=== PATIENT | male | born 1930 | race Caucasian/White ===

== ENCOUNTER 2018-12-02 09:58 | Emergency (ER) | payer MEDICARE ==
[2018-12-02 10:30] VITALS: BP 151/76
--- NOTE | 2018-12-02 10:46 | UC ---
Respiratory Complaint HPI - HPI Summary HPI Summary: Pt presents with c/o nasal congestion, malaise, cough, sob, night sweats, chills X 2 weeks. - History of Current Complaint Stated Complaint: COUGH,COLD SWEATS Time Seen by Provider: 12/02/18 10:09 Hx Obtained From: Patient, Family/Oven Press Tender Onset/Duration: Gradual Onset, Lasting Weeks Timing: Constant Severity Initially: Mild Severity Currently: Moderate Pain Intensity: 4 Character: Cough: Productive Aggravating Factors: Deep Breaths, Recumbent Position Alleviating Factors: Nothing Associated Signs And Symptoms: Positive: Chills, URI, Nasal Congestion - Risk Factors Pulmonary Embolism Risk Factors: Negative Cardiac Risk Factors: Negative Pseudomonas Risk Factors: Negative Tuberculosis Risk Factors: Negative - Allergies/Home Medications Allergies/Adverse Reactions: Allergies Allergy/AdvReac Type Severity Reaction Status Date / Time No Known Allergies Allergy Verified 12/02/18 10:27 Home Medications: Home Medications Acetaminophen [Acetaminophen ER] 650 mg PO Q8H PRN 12/02/18 [History Confirmed 12/02/18] PMH/Surg Hx/FS Hx/Imm Hx Previously Healthy: Yes - extremes of - Surgical History Surgical History: Yes Surgery Procedure, Year, and Place: Bilateral Cataract Extraction, 2017, [place]; Sinus Surgery - Family History Known Family History: Positive: Cardiac Disease - Social History Occupation: Retired Lives: With Family Alcohol Use: None Substance Use Type: None Smoking Status (MU): Former Smoker Length of Time of Smoking/Using Tobacco: <1 PPD x 17 Years When Did the Patient Quit Smoking/Using Tobacco: ~1966 - Immunization History Vaccination Up to Date: No Review of Systems All Other Systems Reviewed And Are Negative: Yes Constitutional: Positive: Fever, Chills, Fatigue Skin: Positive: Negative Eyes: Positive: Negative ENT: Positive: Sinus Congestion Respiratory: Positive: Shortness Of Breath, Cough Cardiovascular: Positive: Negative Gastrointestinal: Positive: Negative Genitourinary: Positive: Negative Motor: Positive: Negative Neurovascular: Positive: Negative Musculoskeletal: Positive: Negative Neurological: Positive: Negative Psychological: Positive: Negative Is Patient Immunocompromised?: No Physical Exam Triage Information Reviewed: Yes Appearance: Ill-Appearing Vital Signs: Initial Vital Signs Temp 99 F 12/02/18 10:24 Pulse 93 12/02/18 10:24 Resp 24 12/02/18 10:24 BP 151/76 12/02/18 10:24 Pulse Ox 97 12/02/18 10:24 Vital Signs Reviewed: Yes Eye Exam: Normal ENT: Positive: Nasal congestion Dental Exam: Normal Neck exam: Normal Respiratory: Positive: Decreased breath sounds - left lower lobe Cardiovascular Exam: Normal Musculoskeletal Exam: Normal Neurological Exam: Normal Psychological Exam: Normal Skin Exam: Normal Respiratory Course/Dx - Differential Dx/Diagnosis Differential Diagnosis/HQI/PQRI: Bronchitis Provider Diagnosis: Pneumonia Discharge - Sign-Out/Discharge Documenting (check all that apply): Patient Departure All imaging exams completed and their final reports reviewed: No Studies - Discharge Plan Condition: Stable Disposition: HOME Prescriptions: Amoxicillin/Clavulanate TAB* [Augmentin TAB*] 875 mg PO Q12H #20 tab Benzonatate CAP* [Tessalon 100 MG CAP*] 200 mg PO Q8H PRN #30 cap PRN Reason: Cough predniSONE TAB* [Deltasone 10 MG TAB*] 30 mg PO DAILY #12 tab Patient Education Materials: Pneumonia (ED) Referrals: Adelina Johnston MD [Primary Care Provider] - As Soon As Possible Additional Instructions: Please follow up with your PCP as soon as possible. If your symptoms do not improve or they worsen then please go directly to the closest emergency room. - Billing Disposition and Condition Condition: STABLE Disposition: Home
== END 2018-12-02 11:03 | disposition home or self-care (01) ==
LOC: UCCORT 09:58
DX: J18.9 Pneumonia, unspecified organism (principal); Z87.891 Personal history of nicotine dependence
CPT/HCPCS: 99202; G0463

== ENCOUNTER 2018-12-19 09:41 | Emergency (ER) | payer MEDICARE ==
[2018-12-19 11:30] VITALS: BP 135/85
--- NOTE | 2018-12-19 12:09 | UC ---
Respiratory Complaint HPI - HPI Summary HPI Summary: 88 yo male with productive cough x weeks recently finished a round of augmentin and prednisone was told he had pneumonia no CP or SOB no n/v/d some sinus pressure ? wt loss - History of Current Complaint Chief Complaint: UCRespiratory Stated Complaint: COUGH Time Seen by Provider: 12/19/18 11:40 Hx Obtained From: Patient Onset/Duration: Gradual Onset Timing: Constant Severity Initially: Mild Severity Currently: Mild Pain Intensity: 0 Pain Scale Used: 0-10 Numeric Character: Cough: Productive Aggravating Factors: Nothing Associated Signs And Symptoms: Positive: Edema, Nasal Congestion, Sinus Discomfort. Negative: Fever, Chills, Pleuritic Chest Pain, Wheezing, Hemoptysis , Dizziness, Calf Pain - Allergies/Home Medications Allergies/Adverse Reactions: Allergies Allergy/AdvReac Type Severity Reaction Status Date / Time No Known Allergies Allergy Verified 12/19/18 11:31 PMH/Surg Hx/FS Hx/Imm Hx Previously Healthy: Yes Neurological History: CVA - Surgical History Surgical History: Yes Surgery Procedure, Year, and Place: Bilateral Cataract Extraction, [facility], [place]; Sinus Surgery - Family History Known Family History: Positive: Cardiac Disease, Hypertension - Social History Alcohol Use: None Substance Use Type: None Smoking Status (MU): Former Smoker Length of Time of Smoking/Using Tobacco: <1 PPD x 17 Years When Did the Patient Quit Smoking/Using Tobacco: ~1966 - Immunization History Vaccination Up to Date: No Review of Systems All Other Systems Reviewed And Are Negative: Yes Constitutional: Positive: Fatigue Skin: Positive: Negative Eyes: Positive: Negative ENT: Positive: Negative Respiratory: Positive: Cough Cardiovascular: Positive: Negative Gastrointestinal: Positive: Negative Genitourinary: Positive: Negative Motor: Positive: Negative Neurovascular: Positive: Negative Musculoskeletal: Positive: Negative Neurological: Positive: Negative Psychological: Positive: Negative Physical Exam Triage Information Reviewed: Yes Appearance: Well-Appearing, No Pain Distress, Well-Nourished Vital Signs: Initial Vital Signs Temp 98.6 F 12/19/18 11:24 Pulse 94 12/19/18 11:24 Resp 16 12/19/18 11:24 BP 135/85 12/19/18 11:24 Pulse Ox 98 12/19/18 11:24 Vital Signs Reviewed: Yes Eyes: Positive: Conjunctiva Clear ENT: Negative: Hearing grossly normal - [place] Dental: Positive: Other: - dentures Neck: Positive: Supple, Nontender, No Lymphadenopathy Respiratory: Positive: Normal breath sounds, No respiratory distress, Decreased breath sounds - left base, Crackles - left side Cardiovascular: Positive: RRR Musculoskeletal: Positive: Edema @ - pretibial edema Neurological: Positive: Alert Psychological Exam: Normal Skin Exam: Normal Diagnostics - Radiology No standard instances Radiology Interpretation Completed By: Radiologist Summary of Radiographic Findings: Similar to the prior chest x-ray there is overall increased interstitial lung markings. The pulmonary vasculature is mostly well-defined and does not appear particularly. engorged. There is no definite focal infiltrate or lobar consolidation. Respiratory Course/Dx - Differential Dx/Diagnosis Provider Diagnosis: History of persistent cough Discharge - Sign-Out/Discharge Documenting (check all that apply): Patient Departure All imaging exams completed and their final reports reviewed: Yes - Discharge Plan Condition: Stable Disposition: HOME Prescriptions: Benzonatate CAP* [Tessalon CAP*] 100 - 200 mg PO TID PRN #28 cap PRN Reason: Cough Patient Education Materials: Acute Cough (ED) Referrals: Adelina Johnston MD [Primary Care Provider] - 1 Week - Billing Disposition and Condition Condition: STABLE Disposition: Home
== END 2018-12-19 12:45 | disposition home or self-care (01) ==
LOC: UCCORT 09:41
DX: R05 Cough (principal); Z87.09 Personal history of other diseases of the respiratory system; Z86.73 Personal history of transient ischemic attack (TIA), and cerebral infarction without residual deficits; Z87.891 Personal history of nicotine dependence
CPT/HCPCS: 71046; 99201; G0463

== ENCOUNTER 2019-04-05 08:01 | Emergency (ER) | payer MEDICARE ==
--- NOTE | 2019-04-05 08:13 | UC ---
Skin Complaint HPI - HPI Summary HPI Summary: cat bite left hand x 2 hrs ago + pain and swelling minimal bleeding cat was provoked , they have been trying to catch and take the cat to the vet. no fever, no chills - History of Current Complaint Time Seen by Provider: 04/05/19 08:09 Stated Complaint: LEFT HAND CAT BITE Hx Obtained From: Patient Onset/Duration: Sudden Onset Timing: Constant Onset Severity: Moderate Current Severity: Moderate Location: Diffuse - left hand Character: Pain, Redness, Raised, Painful Aggravating Factor(s): Touch Alleviating Factor(s): Nothing Associated Signs & Symptoms: Positive: Negative. Negative: Fever, Chills, Cough , Red Streaks Related History: Other: - cat bite - Allergy/Home Medications Allergies/Adverse Reactions: Allergies Allergy/AdvReac Type Severity Reaction Status Date / Time No Known Allergies Allergy Verified 04/05/19 08:15 PMH/Surg Hx/FS Hx/Imm Hx Neurological History: CVA - Surgical History Surgical History: Yes Surgery Procedure, Year, and Place: Bilateral Cataract Extraction, [facility] [place]; Sinus Surgery - Family History Known Family History: Positive: Cardiac Disease, Hypertension - Social History Alcohol Use: None Substance Use Type: None Smoking Status (MU): Former Smoker Length of Time of Smoking/Using Tobacco: <1 PPD x 17 Years When Did the Patient Quit Smoking/Using Tobacco: ~1966 - Immunization History Vaccination Up to Date: No Review of Systems All Other Systems Reviewed And Are Negative: Yes Constitutional: Positive: Negative Is Patient Immunocompromised?: No Physical Exam Triage Information Reviewed: Yes Appearance: Well-Appearing, No Pain Distress, Well-Nourished Vital Signs Reviewed: Yes Eye Exam: Normal Eyes: Positive: Conjunctiva Clear ENT: Positive: Normal ENT inspection, Hearing grossly normal Neck: Positive: Supple, Nontender, No Lymphadenopathy Respiratory: Positive: Chest non-tender, Lungs clear, Normal breath sounds Cardiovascular: Positive: RRR, No Murmur, Pulses Normal Skin: Positive: Other - puncture wound of left hand due to cat bite , mild swelling, no bleeding, no erythema, no discharge Course/Dx - Diagnoses Provider Diagnosis: Puncture wound of left hand, Cat bite of left hand Discharge ED - Sign-Out/Discharge Documenting (check all that apply): Patient Departure All imaging exams completed and their final reports reviewed: No Studies - Discharge Plan Condition: Stable Disposition: HOME Prescriptions: Amoxicillin/Clavulanate TAB* [Augmentin TAB 875*] 875 mg PO BID #20 tab Patient Education Materials: Animal Bite (ED) Referrals: Adelina Johnston MD [Primary Care Provider] - 5 Days - Billing Disposition and Condition Condition: STABLE Disposition: Home
[2019-04-05] MEDS ORDERED: Tetan/Diph/Pertus SYR(Tdap)* 0.5 ML SYR(BOOSTRIX) use SYR IM ONE (08:14)
[2019-04-05 08:27] VITALS: BP 154/75
== END 2019-04-05 08:46 | disposition home or self-care (01) ==
LOC: UCCORT 08:01
DX: S61.452A Open bite of left hand, initial encounter (principal); W55.01XA Bitten by cat, initial encounter; Y93.89 Activity, other specified; Y92.9 Unspecified place or not applicable; Z86.73 Personal history of transient ischemic attack (TIA), and cerebral infarction without residual deficits; Z87.891 Personal history of nicotine dependence
CPT/HCPCS: 90471; 90715; 99212; G0463

== ENCOUNTER 2019-07-23 14:01 | Emergency (ER) | payer MEDICARE ==
[2019-07-23 14:39] VITALS: BP 140/72
--- NOTE | 2019-07-23 14:56 | UC ---
Respiratory Complaint HPI - HPI Summary HPI Summary: 88-year-old male presents with one-week history of nasal congestion, bilateral ear pain, sore throat, and a productive cough. States cough tends to be worse at night. Complains of right lower chest pain especially with inspiration. No measured fever. Patient reports he is prone to developing pneumonia. Denies palpitations, edema, diaphoresis, shortness of breath, abdominal pain, nausea, or vomiting. - History of Current Complaint Chief Complaint: UCGeneralIllness Stated Complaint: CONGESTION COUGH Time Seen by Provider: 07/23/19 14:42 Hx Obtained From: Patient Pain Intensity: 0 - Allergies/Home Medications Allergies/Adverse Reactions: Allergies Allergy/AdvReac Type Severity Reaction Status Date / Time No Known Allergies Allergy Verified 07/23/19 14:39 PMH/Surg Hx/FS Hx/Imm Hx Previously Healthy: Yes - Denies significant PMH - Surgical History Surgical History: Yes Surgery Procedure, Year, and Place: Bilateral Cataract Extraction, [facility], [place]; Sinus Surgery - Family History Known Family History: Positive: Cardiac Disease, Hypertension - Social History Occupation: Retired Lives: With Family Alcohol Use: None Substance Use Type: None Smoking Status (MU): Former Smoker Length of Time of Smoking/Using Tobacco: <1 PPD x 17 Years When Did the Patient Quit Smoking/Using Tobacco: ~1966 - Immunization History Vaccination Up to Date: No Review of Systems All Other Systems Reviewed And Are Negative: Yes Constitutional: Negative: Fever, Chills, Fatigue Skin: Negative: Rash Eyes: Negative: Drainage, Eye Redness ENT: Positive: Sore Throat, Ear Ache, Nasal Discharge, Sinus Congestion. Negative: Sinus Pain/Tenderness Respiratory: Positive: Cough. Negative: Shortness Of Breath Cardiovascular: Positive: Chest Pain. Negative: Palpitations Gastrointestinal: Negative: Abdominal Pain, Vomiting, Nausea Genitourinary: Positive: Negative Musculoskeletal: Positive: Negative Neurological: Positive: Negative Is Patient Immunocompromised?: No Physical Exam - Summary Physical Exam Summary: GENERAL APPEARANCE: Alert and cooperative older adult male who appears to be in no acute distress. EYES: Conjunctiva clear. No drainage. EARS: External auditory canals and tympanic membranes clear, hearing grossly intact. NOSE: Mild nasal congestion. No nasal discharge. THROAT: Pharyngeal cobblestoning. No tonsilar inflammation, swelling, exudate, or lesions. Uvula midline. NECK: Neck supple, non-tender without lymphadenopathy. CARDIAC: Normal S1 and S2. No S3, S4 or murmurs. Rhythm is regular. There is no peripheral edema, cyanosis or pallor. Extremities are warm and well perfused. Capillary refill is less than 2 seconds. Peripheral pulses intact. LUNGS: Fine crackles noted to the right base. No diminished breath sounds or wheezing. ABDOMEN: Positive bowel sounds. Soft, nondistended, nontender. No guarding or rebound. No masses or hepatosplenomegally. MUSKULOSKELETAL: ROM intact to all extremities. No joint erythema or tenderness. Normal muscular development. Normal gait. SKIN: Skin normal color, texture and turgor with no lesions or eruptions. Triage Information Reviewed: Yes Vital Signs: Initial Vital Signs Temp 98.3 F 07/23/19 14:32 Pulse 93 07/23/19 14:32 Resp 18 07/23/19 14:32 BP 140/72 07/23/19 14:32 Pulse Ox 98 07/23/19 14:32 Vital Signs Reviewed: Yes Diagnostics - Radiology No standard instances Radiology Interpretation Completed By: Radiologist Summary of Radiographic Findings: Order Information: CHEST PA LAT 2 VWS. Indication: Cough, pneumonia. 2 views of the chest including dual energy PA views demonstrate no mediastinal shift. Right upper lobe density is identified. Further evaluation with CT is suggested. Additionally there is airspace disease in the right base consistent with right basilar pneumonia. Elevated left hemidiaphragm is present. IMPRESSION: Right upper lobe nodule. Elevated left hemidiaphragm. Right basilar pneumonia. Respiratory Course/Dx - Course Course Of Treatment: 88-year-old male presents with one-week history of nasal congestion, bilateral ear pain, sore throat, and a productive cough. States cough tends to be worse at night. Complains of right lower chest pain especially with inspiration. No measured fever. Patient reports he is prone to developing pneumonia. Denies palpitations, edema, diaphoresis, shortness of breath, abdominal pain, nausea, or vomiting. Afebrile. Mildly hypertensive otherwise vital signs stable. Patient had mild nasal congestion, pharyngeal cobblestoning, no tonsillar swelling or exudate, no cervical lymphadenopathy, fine crackles were noted to the right lung base, and remainder of exam was unremarkable. Chest x-ray showed a right basilar pneumonia. There was also a new nodule noted to the right upper lobe that was not present on previous x-rays. Reviewed results with the patient. We'll start him on Augmentin 875 mg twice a day 10 days as well as doxycycline 100 mg twice a day 10 days to treat for a community- acquired pneumonia. Have recommended that he follow up with his primary care provider in 3-5 days for recheck of his symptoms as well as for further evaluation of the right upper lung nodule. Anticipatory guidance and warning symptoms were reviewed with the patient. Verbalizes understanding and agrees with plan of care. - Differential Dx/Diagnosis Differential Diagnosis/HQI/PQRI: Aspiration, Bronchitis, Influenza, Lower Resp Infection, Other - URI Provider Diagnosis: Right lower lobe pneumonia, Community acquired pneumonia Discharge ED - Sign-Out/Discharge Documenting (check all that apply): Patient Departure All imaging exams completed and their final reports reviewed: Yes - Discharge Plan Condition: Stable Disposition: HOME Prescriptions: Amoxicillin/Clavulanate TAB* [Augmentin TAB 875*] 875 mg PO BID 10 Days #20 tab Doxycycline Hyclate 100 mg PO BID 10 Days #20 tablet Patient Education Materials: Community Acquired Pneumonia (ED) Referrals: Adelina Johnston MD [Primary Care Provider] - 3 Days Additional Instructions: The x-ray performed in the clinic today showed a right basilar pneumonia which we will start to on 2 different antibiotics to treat for the infection. There was also a new nodule noted in the right upper lung which was not present on previous x-rays. You will need to follow-up with your primary care provider as you will need a CT scan for further evaluation. Start Augmentin 875 mg 1 tablet twice a day for 10 days. Start doxycycline 100 mg 1 tablet twice a day for 10 days. You may use [id number] Robitussin as needed for cough. Use salt water gargles several times a day for the sore throat. Take over the counter acetaminophen (Tylenol) according to directions as needed for pain or fever. You may also use Chloraseptic spray or Cepacol lonzenges according to directions which contain a numbing medication and can provide some temporary relief from your sore throat. Return here or follow up with your primary care provider in 3-5 days for recheck of your symptoms and further evaluation of the right lung nodule. Seek immediate medical attention in the emergency room if you develop a fever greater than 100.5 F, you have severe chest pain, shortness of breath, you become weak or dizzy, or have any worsening of symptoms. - Billing Disposition and Condition Condition: STABLE Disposition: Home
== END 2019-07-23 16:10 | disposition home or self-care (01) ==
LOC: UCCORT 14:01
DX: J18.1 Lobar pneumonia, unspecified organism (principal); R91.1 Solitary pulmonary nodule; J02.9 Acute pharyngitis, unspecified; H92.03 Otalgia, bilateral; J34.89 Other specified disorders of nose and nasal sinuses; Z87.891 Personal history of nicotine dependence
CPT/HCPCS: 71046; 99212; G0463

== ENCOUNTER 2019-08-17 10:33 | Emergency (ER) | payer MEDICARE ==
--- NOTE | 2019-08-17 11:45 | UC ---
Respiratory Complaint HPI - HPI Summary HPI Summary: 88 yo diagnosed with RLL on 07/23/2019, took full course of doxy and augmentin. Chest xray also showed a right upper lung nodule, and CT of the chest was recommended. He had follow up scheduled today with Dr. Johnston, who would not see him due to having a bill in collections. He is hard of hearing, and he is rather insisitent on a follow up CXR although he is aware that what he needs is a CT of the chest. Past hx of stroke, does not take any medications. continues to cough, does not have a fever. - History of Current Complaint Chief Complaint: UCRespiratory Stated Complaint: RECHECK PNEUMONIA Time Seen by Provider: 08/17/19 11:29 Hx Obtained From: Patient, Family/Blood Tester Fowl - here with his Onset/Duration: Gradual Onset Severity Initially: Moderate Severity Currently: Moderate Pain Intensity: 0 Character: Cough: Nonproductive Aggravating Factors: Nothing Alleviating Factors: Nothing Associated Signs And Symptoms: Positive: Negative - Allergies/Home Medications Allergies/Adverse Reactions: Allergies Allergy/AdvReac Type Severity Reaction Status Date / Time No Known Allergies Allergy Verified 08/17/19 10:53 Home Medications: Home Medications NK [No Home Medications Reported] 08/17/19 [History Confirmed 08/17/19] PMH/Surg Hx/FS Hx/Imm Hx Previously Healthy: Yes Respiratory History: Pneumonia, Other - lung nodule on CXR 07/2019 Neurological History: CVA - Surgical History Surgical History: Yes Surgery Procedure, Year, and Place: Bilateral Cataract Extraction, 2017, [place]; Sinus Surgery. Cardiac stents x4, 2014 - Family History Known Family History: Positive: Cardiac Disease, Hypertension - Social History Occupation: Retired Lives: With Family Alcohol Use: None Substance Use Type: None Smoking Status (MU): Former Smoker Length of Time of Smoking/Using Tobacco: <1 PPD x 17 Years When Did the Patient Quit Smoking/Using Tobacco: ~1966 - Immunization History Vaccination Up to Date: No Review of Systems All Other Systems Reviewed And Are Negative: Yes Constitutional: Positive: Fatigue Skin: Positive: Negative Eyes: Positive: Negative ENT: Positive: Other - hearing loss Respiratory: Positive: Cough Cardiovascular: Negative: Chest Pain Gastrointestinal: Positive: Negative Genitourinary: Positive: Negative Motor: Positive: Weakness Neurological: Positive: Weakness Physical Exam Triage Information Reviewed: Yes Appearance: Other: - Elderly man, hard of hearing, some word finding difficulty , and difficulty acquiring history Vital Signs: Initial Vital Signs Temp 98.3 F 08/17/19 10:56 Pulse 71 08/17/19 10:56 Resp 16 08/17/19 10:56 BP 150/67 08/17/19 10:56 Pulse Ox 99 08/17/19 10:56 Eye Exam: Normal ENT: Positive: Normal ENT inspection Respiratory: Positive: Decreased breath sounds - right base, Crackles - fine crackles in the right base.. Negative: Rhonchi, Stridor, Wheezing Neurological: Positive: Alert Diagnostics - Radiology No standard instances Radiology Interpretation Completed By: Radiologist - Patient Name: INDY HINES Medical Record#: [id number] Ordering Physician: Deb Marrufo MD Acct.#: [id number] : Age: 88 Sex: M Location: [facility] Exam Date: 08/17/19 1150 ADM Status: REG ER Order Information: CHEST PA & LAT 2 VWS Accession Number: [id number] CPT: 51937 HISTORY: follow up post pneumonia COMPARISONS: Prior study of July 23, 2019. VIEWS: 4: Frontal dual-energy and lateral views of the chest. FINDINGS: CARDIOMEDIASTINAL SILHOUETTE: The cardiomediastinal silhouette is normal. BELLE: The belle are normal. PLEURA: The costophrenic angles are sharp. No pleural abnormalities are noted. LUNG PARENCHYMA: A nodular density noted in the right upper lobe lobe at the level of right third anterior rib measures about 1.5 cm in greatest dimension, CT scan of the chest would be helpful for further evaluation. Previously seen airspace in the right lung base has partially resolved. Left lung is clear ABDOMEN: The upper abdomen is clear. There is no subphrenic gas. BONES AND SOFT TISSUES: No bone or soft tissue abnormalities are noted. OTHER: None. IMPRESSION: 1. 1.5 cm nodular density right upper lobe, needing a CT scan of the chest for further evaluation 2. Partial resolution of the airspace disease the right lung base, please follow to complete resolution <Electronically signed by Delfina Meadows MD in [place]> 08/17/19 1221 Dictated By: Delfina Meadows MD Dictated Date/Time: 08/17/19 1216 Transcribed Date/Time: 1216 Copy to: CC:Adelina Johnston MD; Deb Marrufo MD Imaging - [facility] Imaging - [facility] Imaging - [facility] [address] [address] This report is only to be considered final once signed by the Provider(s ) as displayed in the "<Electronically Signed by >" field (s). Absence of a signature indicates the report is in a draft status and still needs to be finalized. In the event this document was created by someone other than the signing Provider, the individual initiating the document will be listed in the "Entered by:" or "Dictated by:" [email or web address]. 1 of 2 Respiratory Course/Dx - Course Course Of Treatment: Discussed that CT is needed for evaluation of his lung nodule. - Differential Dx/Diagnosis Differential Diagnosis/HQI/PQRI: Lower Resp Infection, Other - lung nodule Provider Diagnosis: Lung nodule, solitary Discharge ED - Sign-Out/Discharge Documenting (check all that apply): Patient Departure All imaging exams completed and their final reports reviewed: No Studies - Discharge Plan Condition: Stable Disposition: HOME Patient Education Materials: Pulmonary Nodules (ED) Referrals: Adelina Johnston MD [Primary Care Provider] - Additional Instructions: Your pneumonia has improved, but the xray still shows some change in the right lower lung. This is NOT uncommon at not quite 4 weeks post treatment. You continue to have a 1.5 cm upper lung nodule which needs further imaging. YOU WILL BE SEEN BY Gage SNOW AT DR. FRANK'S OFFICE ON AT 2: 30PM. - Billing Disposition and Condition Condition: STABLE Disposition: Home
[2019-08-17 13:59] VITALS: BP 140/68
== END 2019-08-17 14:52 | disposition home or self-care (01) ==
LOC: UCCORT 10:33
DX: R91.1 Solitary pulmonary nodule (principal); R53.83 Other fatigue; R05 Cough; R53.1 Weakness; Z87.01 Personal history of pneumonia (recurrent); Z87.891 Personal history of nicotine dependence
CPT/HCPCS: 71046; 99212; G0463